=== PATIENT | male | born 1980 | race Caucasian/White ===

== ENCOUNTER 2022-04-11 17:34 | Emergency (ER) | payer SELFPAY ==
[2022-04-11 17:35] VITALS: BP 158/89; PULSE 126; RESP 16; TEMP 36.9; O2SAT 98; BMI 25.1
--- NOTE | 2022-04-11 18:00 | EDS_ITS ---
HPI HPI - GI History of Present Illness Chief Complaint: GI Bleed Informant: patient Narrative Narrative: Patient presents with some intermittent abdominal discomfort and some blood in the stool mostly with wiping. Patient states he always has some abdominal soreness. He describes it as epigastric. It has been increased a little bit over the last 3 months but is off and on. He still eating and drinking. He states in the past when its gotten bad he has vomited but he is not having nausea and vomiting now. He does drink 2 or 3 tall boys of beer in the evening. He does not go through withdrawals if he chooses not to drink. He states is not uncommon that he has a little bit of blood with wiping. Today was a little bit more than normal. He had actually some blood that dripped in the toilet bowl. He does not feel short of breath or weak or lightheaded with standing. He has never had Crohn's or ulcerative colitis. He has never seen anybody for his symptoms but they have been going off and on for years. He is not having diarrhea or soft stools. He states his stool is normal formed and light brown. No fevers or chills. Nothing consistently makes the symptoms better or worse but he has not tried anything. PFSH PFSH Medical History no medical history Home Medications omeprazole 20 mg PO BID 10 Days #20 cap 04/11/22 [Rx Last Taken Unknown] ondansetron 4 mg PO Q8H PRN #10 tab 04/11/22 [Rx Last Taken Unknown] Allergy/AdvReac Type Severity Reaction Status Date / Time amoxicillin Allergy Angioedema Verified 04/11/22 17:37 pineapple Allergy Angioedema Verified 04/11/22 17:37 Surgical History no surgical history Social History Smoking Status: Current every day smoker tobacco type: cigarettes and e- cigarettes ROS ROS ED Constitutional Constitutional ED: Denies chills or fever(s) ENT ENT ED: Denies rhinorrhea Cardiovascular Cardiovascular: Denies chest pain or palpitations Respiratory/Chest Respiratory/Chest: Denies cough or dyspnea Gastrointestinal Gastrointestinal: Reports abdominal pain and other Details: See history of present illness. ; Denies constipation, diarrhea, nausea or vomiting Genitourinary Genitourinary ED: Denies hematuria Musculoskeletal Musculoskeletal: Reports other Details: No joint pains. ; Denies arthralgias, back pain or myalgias Integumentary Denies rash Neurologic Neurologic: Denies paresthesias or weakness Psychiatric Psychiatric: Reports depression; Denies anxiety Endocrine Endocrinology: Denies polydipsia or polyuria Hematologic/Lymphatic Hematologic/Lymphatic: Denies easy bleeding or easy bruising Allergic/Immunologic Allergic/Immunologic ED: Denies urticaria EXAM Physical Exam Const Vital Signs: 04/11/22 17:35 Temperature 98.5 F Temperature Source Temporal Pulse Rate 126 H Respiratory Rate 16 Blood Pressure 158/89 H Blood Pressure Mean 112 Pulse Ox 98 Oxygen Delivery Method Room Air Positive well nourished and well developed General Appearance ED: well developed and NAD; Negative for pallor HEENT Reports moist mucous membranes Eyes General Eye ED: Negative for pale conjunctiva or scleral icterus Neck no JVD Resp normal respiratory effort Cardio regular rate, regular rhythm and no murmurs Cardio Narrative: Heart rate was reported as tachycardic when he came in but is normal at this time. GI non-tender, non-distended and no masses GI Narrative: Abdomen is actually quite benign. He states he gets some epigastric discomfort but is not tender. Rectal exam does show an inflamed hemorrhoid at about the 5 o'clock position. There is a small amount of blood near that. What stool is visible is light to medium brown though. There is no sign of abscess. Auscultation: normoactive bowel sounds Palpation: soft Back/Spine no CVA tenderness Extremity General Extremety ED: Negative for edema or tenderness General Extremity: Negative for edema Neuro Sensorium / Orientation: alert Psych mental status grossly normal Skin Skin Narrative: No petechiae purpura or pallor. No diaphoresis. General Skin Exam: Negative for pallor Rashes: no rashes MDM MDM MDM Narrative Medical decision making narrative: Patient's blood work including CBC with hemoglobin white count and platelets are normal. Liver function test electrolytes are also all normal. I had a long discussion with patient. We discussed initially. He does not have insurance and does not want to have significant debt. We had discussed doing a CT scan but with his symptoms being chronic and his blood work good and exam overall unremarkable I think we can hold off on this. It is possible he has Crohn's but without diarrhea and onset at this age I think is less likely. His discomfort is epigastric. I will write for some Prilosec. I will write for Jacinto in case he develops nausea because this has happened before. We discussed reasons to return and follow-up. He also does have a small hemorrhoid. This might have even been the source of his bleeding as it is quite inflamed and looks acutely deflated. Lab Data Attestation: I reviewed the patient's lab results. Labs: Laboratory Results - last 24 hr 04/11/22 04/11/22 18:05 18:05 WBC 7.9 RBC 4.02 L Hgb 14.0 Hct 40.7 MCV 101.2 H MCH 34.8 H MCHC 34.4 RDW Std Deviation 49.4 H RDW Coeff of [place] 13.2 Plt Count 204 MPV 9.2 Immature Gran % (Auto) 0.300 Neut % (Auto) 68.6 Lymph % (Auto) 22.6 [place] % (Auto) 7.4 Eos % (Auto) 0.5 Baso % (Auto) 0.6 Absolute Neuts (auto) 5.4 Absolute Lymphs (auto) 1.79 Nucleated RBC % 0 Sodium 138 Potassium 3.8 Chloride 107 Carbon Dioxide 23.0 Anion Gap 8 BUN 8 Creatinine 0.75 Estim Creat Clear Calc 135.19 Est GFR (MDRD) Af Amer 149 Est GFR (MDRD) Non-Af 123 BUN/Creatinine Ratio 10.7 Glucose 88 Calcium 8.1 L Total Bilirubin 0.30 AST 26 ALT 23 Alkaline Phosphatase 49 Total Protein 6.6 Albumin 3.7 Globulin 2.9 Albumin/Globulin Ratio 1.3 Discharge Plan Triage Chief Complaint: GI Bleed ED Provider: Timothy Bear Dx/Rx/DC Orders Clinical Impression: Epigastric pain, Rectal bleeding, Hemorrhoids Instructions: Abdominal Pain, ED Hemorrhoids Prescriptions: New ondansetron 4 mg tablet,disintegrating 4 mg PO Q8H PRN (Reason: nausea and vomiting) Qty: 10 RF: 0 omeprazole 20 mg capsule,delayed release(DR/EC) 20 mg PO BID 10 Days Qty: 20 RF: 0 Primary Care Provider: Care Physician,No Primary Referrals: Friend,Tho, DO [STAFF PHYSICIAN] - 10-14 Days if not better Care Physician,No Primary [Primary Care Provider] - Disposition Disposition: Home, Self Care
--- NOTE | 2022-04-11 18:00 | EKG12_ITS ---
Test Reason : GI BLEED Blood Pressure : / mmHG Vent. Rate : 104 BPM Atrial Rate : 104 BPM P-R Int : 140 ms QRS Dur : 098 ms QT Int : 332 ms P-R-T Axes : 072 062 038 degrees QTc Int : 436 ms Sinus tachycardia Otherwise normal ECG Confirmed by RADHA SEPULVEDA, GABRIELLA ([id number]), state editor MARTY MACE ([id number]) on 04/13/2022 1:22:06 PM Referred By: LOWELL Confirmed By:GABRIELLA GARCIA MD
[2022-04-11 18:20] LABS: Absolute Lymphocyte Count 1.79 X10^3/uL (0.83-4.51); Absolute Neutrophil Count 5.4 X10^3/uL (2.0-7.7); Basophil# 0.05 X10^3/uL; Basophil% 0.6 % (0-1); Eosinophil# 0.04 X10^3/uL; Eosinophils% 0.5 % (0-5); Hematocrit 40.7 % (40-54); Lymphocyte # 1.79 X10^3/ul (0.83-4.51); Lymphocyte % 22.6 % (19-41); Mean Corp Hgb Conc 34.4 g/dL (32-36); Mean Corpuscular Hgb 34.8 pg (27.0-32.0); Mean Corpuscular Volume 101.2 fL (80-94); Mean Platelet Vol. 9.2 fl (6.2-12.0); Monocyte# 0.59 X10^3/uL; Monocyte% 7.4 % (0-10); NRBC Flagged by Analyzer 0 % (0-5); Neutrophil # 5.43 X10^3/uL (2.7-7.7); Neutrophil % 68.6 % (47-70); Platelet Count 204 K/mm3 (150-450); RBC Distribution Width CV 13.2 % (11.6-14.6); RBC Distribution Width SD 49.4 fl (35.1-43.9); Red Blood Count 4.02 M/mm3 (4.6-6.2); White Blood Count 7.9 K/mm3 (4.4-11.0)
[2022-04-11 18:32] LABS: ALB/GLOB Ratio 1.3 RATIO (0.9-2.4); AST(SGOT) 26 U/L (15-37); Alanine Aminotransfer ALT/SGPT 23 U/L (16-61); Albumin, Serum 3.7 g/dL (3.2-5.0); Alkaline Phosphatase 49 U/L (45-117); Anion Gap 8 (5-15); BUN 8 mg/dL (7-18); BUN/Creat Ratio 10.7 RATIO (10-20); Calcium,Total 8.1 mg/dL (8.5-10.1); Chloride 107 mmol/L (98-107); Creatinine, Serum 0.75 mg/dL (0.70-1.30); EST Glomerular Filtration Rate 123 mL/min (>60); Est Glom Filt Rate - Afr Amer 149 mL/min (>60); Estimated Creatinine Clearance 135.19 ml/min; Globulin 2.9 g/dL (2.2-4.2); Glucose 88 mg/dL (74-106); Potassium 3.8 mmol/L (3.5-5.1); Protein, Total 6.6 g/dL (6.4-8.2); Sodium Level 138 mmol/L (136-145)
--- NOTE | 2022-04-11 19:42 | CM.ED ---
Social Work Note Reason for Referral: No PCP SW met with pt and provided PCP list and self-pay packet. Tonya Gilbert PEDIATRIC ORTHODONTIST, PAYROLL ACCOUNTANT
== END 2022-04-11 19:46 | disposition home or self-care (01) ==
PROVIDERS: Emergency Provider Emergency Medicine; Visit Provider Emergency Medicine
DX: R10.13 Epigastric pain (principal); K64.9 Unspecified hemorrhoids; K62.5 Hemorrhage of anus and rectum; F17.210 Nicotine dependence, cigarettes, uncomplicated
CPT/HCPCS: 80053; 85025; 93005; 99283; A4216